=== PATIENT | female | born 1960 | race Caucasian/White ===

== ENCOUNTER 2020-07-30 03:08 | Emergency (ER) | payer OTHER ==
[2020-07-30] MEDS ORDERED: Phenazopyridine 95 MG Tab PO ONE (03:53)
--- NOTE | 2020-07-30 03:57 | EDM.PDOC ---
ED HPI GENERAL MEDICAL PROBLEM - General Chief Complaint: Genitourinary Problem Stated Complaint: BLADDER INFECTION Time Seen by Provider: 07/30/20 03:44 Source of Information: Reports: Patient, RN Notes Reviewed History Limitations: Reports: No Limitations - History of Present Illness INITIAL COMMENTS - FREE TEXT/NARRATIVE: 60-year-old gentleman presents emergency department with a complaint of dysuria, she states been going on for 24 hours she is having no other symptoms no fevers Suprapubic Pain Score (Numeric/FACES): 5 - Related Data Allergies Allergy/AdvReac Type Severity Reaction Status Date / Time Sulfa (Sulfonamide Allergy Swelling Verified 07/30/20 03:24 Antibiotics) Home Meds: Home Meds NK [No Known Home Meds] 07/30/20 [History] methocarbamoL [Methocarbamol] 500 mg PO ASDIRECTED PRN 07/30/20 [History] Past Medical History HEENT History: Reports: Impaired Vision Cardiovascular History: Reports: High Cholesterol, Other (See Below) Other Cardiovascular History: PFO - did not close as she grew Genitourinary History: Reports: UTI, Recurrent Musculoskeletal History: Reports: Back Pain, Chronic Oncologic (Cancer) History: Reports: Lung - Infectious Disease History Infectious Disease History: Reports: Chicken Pox, Herpes, Measles, Mumps, Rubella - Past Surgical History HEENT Surgical History: Reports: LASIK Oncologic Surgical History: Reports: Lobectomy, Other (See Below) Other Oncologic Surgeries/Procedures: right lower lobe Social & Family History - Tobacco Use Tobacco Use Status *Q: Never Tobacco User ED ROS GENERAL - Review of Systems Review Of Systems: See Below Constitutional: Denies: Fever, Chills : Reports: Dysuria ED EXAM, RENAL/ - Physical Exam Exam: See Below Exam Limited By: No Limitations General Appearance: Alert, WD/WN, No Apparent Distress Respiratory/Chest: No Respiratory Distress GI/Abdominal: Soft, Tender (Suprapubic discomfort) Course - Vital Signs Last Recorded V/S: Last Vital Signs Temp 97.3 F 07/30/20 03:36 Pulse 95 07/30/20 03:36 Resp 18 07/30/20 03:36 BP 109/69 07/30/20 03:36 Pulse Ox 98 07/30/20 03:36 - Orders/Labs/Meds Orders: Active Orders 24 hr Category Date Time Status CULTURE URINE [RM] Urgent Lab 07/30/20 03:45 Ordered Phenazopyridine [Urinary Pain Relief] Med 07/30/20 03:53 Once 190 mg PO ONETIME ONE Medication Orders Phenazopyridine HCl (Urinary Pain Relief) 190 mg PO ONETIME ONE Stop: 07/30/20 03:54 Labs: Laboratory Tests 07/30/20 Range/Units 03:18 Urine Color Yellow (YELLOW) Urine Appearance Cloudy A (CLEAR) Urine pH 5.5 (5.0-8.0) Ur Specific [place] >= 1.030 (1.008-1.030) Urine Protein 100 H (NEGATIVE) mg/dL Urine Glucose (UA) Negative (NEGATIVE) mg/dL Urine Ketones Negative (NEGATIVE) mg/dL Urine Occult Blood Large H (NEGATIVE) Urine Nitrite Positive H (NEGATIVE) Urine Bilirubin Negative (NEGATIVE) Urine Urobilinogen 0.2 (0.2-1.0) EU/dL Ur Leukocyte Esterase Small H (NEGATIVE) Urine RBC >100 H (0-5) Urine WBC 20-30 H (0-5) Ur Epithelial Cells Few Amorphous Sediment Not seen Urine Bacteria Many Urine Mucus Not seen Meds: Medications Generic Name Dose Route Start Last Admin Trade Name Freq PRN Reason Stop Dose Admin Phenazopyridine HCl 190 mg 07/30/20 03:53 Urinary Pain Relief PO 07/30/20 03:54 ONETIME ONE Departure - Departure Time of Disposition: 03:56 Disposition: Home, Self-Care 01 Condition: Good Clinical Impression: UTI, Urinary tract infectious disease - Discharge Information Instructions: Urinary Tract Infection, Adult, [id number] Referrals: PCP,None [Primary Care Provider] - Additional Instructions: Take full course of antibiotics, continue to use Pyridium for comfort, your culture results will be available in 3 to 4 days, please followup with your primary care provider in 3-5 days if not better, please call return to the emergency department with worsening of symptoms. Sepsis Event Note (ED) - Evaluation Sepsis Screening Result: No Definite Risk - Focused Exam Vital Signs: Vital Signs Temp Pulse Resp BP Pulse Ox 07/30/20 03:36 97.3 F 95 18 109/69 98 07/30/20 03:35 97.3 F 95 18 109/69 98 - My Orders Last 24 Hours: My Active Orders 07/30/20 03:45 CULTURE URINE [RM] Urgent 07/30/20 03:53 Phenazopyridine [Urinary Pain Relief] 190 mg PO ONETIME ONE - Assessment/Plan Last 24 Hours: My Active Orders 07/30/20 03:45 CULTURE URINE [RM] Urgent 07/30/20 03:53 Phenazopyridine [Urinary Pain Relief] 190 mg PO ONETIME ONE Plan: Assessment Acuity = acute Site and laterality = urinary tract infection Etiology = probable bacterial cause Manifestations = none Location of injury = Home Lab values = greater than 100 RBCs consistent with hematuria 20-30 WBCs consistent with pyuria cultures pending positive nitrates Plan Treat empirically Augmentin 875 p.o. twice daily x7 days in combination with Pyridium, follow-up primary care 3 to 5 days if not better culture results will be available in 3 to 4 days This note was dictated using [employer] voice recognition software please call with any questions on syntax or grammar.
== END 2020-07-30 04:05 | disposition home or self-care (01) ==
LOC: JP.ED 03:08
DX: N39.0 Urinary tract infection, site not specified (principal); Z88.2 Allergy status to sulfonamides
CPT/HCPCS: 81001; 87086; 87088; 87186; 99283; A9270

== ENCOUNTER 2020-08-05 20:11 | Emergency (ER) | payer MEDICAID, OTHER ==
--- NOTE | 2020-08-05 22:09 | EDM.PDOC ---
ED HPI GENERAL MEDICAL PROBLEM - General Chief Complaint: Genitourinary Problem Stated Complaint: UTI Time Seen by Provider: 08/05/20 20:29 Source of Information: Reports: Patient History Limitations: Reports: No Limitations - History of Present Illness INITIAL COMMENTS - FREE TEXT/NARRATIVE: chief complaint: bladder pain and pressure This is a 60 year old female presents to ER for evaluation of bladder pain and pressure. She reports it feels just her bladder infection never resolved and now feels like it is getting worse. denies fever, chills, nausea, vomiting, diarrhea. 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(s) - Related Data Allergies Allergy/AdvReac Type Severity Reaction Status Date / Time Sulfa (Sulfonamide Allergy Swelling Verified 08/05/20 21:25 Antibiotics) Home Meds: Home Meds methocarbamoL [Methocarbamol] 500 mg PO ASDIRECTED PRN 07/30/20 [History] Amoxicillin/Potassium Clav [Augmentin 875-125 Tablet] 1 tab PO BID 08/05/20 [History] Past Medical History HEENT History: Reports: Impaired Vision Cardiovascular History: Reports: High Cholesterol, Other (See Below) Other Cardiovascular History: PFO - did not close as she grew Genitourinary History: Reports: UTI, Recurrent Musculoskeletal History: Reports: Back Pain, Chronic Oncologic (Cancer) History: Reports: Lung - Infectious Disease History Infectious Disease History: Reports: Chicken Pox, Herpes, Measles, Mumps, Rubella - Past Surgical History HEENT Surgical History: Reports: LASIK Oncologic Surgical History: Reports: Lobectomy, Other (See Below) Other Oncologic Surgeries/Procedures: right lower lobe Social & Family History - Tobacco Use Tobacco Use Status *Q: Never Tobacco User - Recreational Drug Use Recreational Drug Use: No ED ROS GENERAL - Review of Systems Review Of Systems: See Below Constitutional: Reports: No Symptoms HEENT: Reports: No Symptoms Respiratory: Reports: No Symptoms Cardiovascular: Reports: No Symptoms Endocrine: Reports: No Symptoms GI/Abdominal: Reports: Abdominal Pain (low pelvic pain and pressure) : Reports: Dysuria, Frequency, Hematuria, Pain, Urgency Musculoskeletal: Reports: Back Pain (chronic) Skin: Reports: No Symptoms, Change in Color Psychiatric: Reports: No Symptoms Hematologic/Lymphatic: Reports: No Symptoms Immunologic: Reports: No Symptoms ED EXAM, GI/ABD - Physical Exam Exam: See Below Exam Limited By: No Limitations General Appearance: Alert, WD/WN, No Apparent Distress, Other (neat and well groomed, pleasant. appears younger than stated age.) Eyes: Bilateral: Normal Appearance Respiratory/Chest: No Respiratory Distress GI/Abdominal Exam: Normal Bowel Sounds, Soft, No Distention, Tender (pelvic/bladder) (Female) Exam: Deferred Rectal (Female) Exam: Deferred Back Exam: Normal Inspection, Full Range of Motion Extremities: Normal Inspection, Normal Range of Motion Neurological: Alert, Oriented, CN II-XII Intact, Normal Cognition, Normal Gait, Normal Reflexes, No Motor/Sensory Deficits Psychiatric: Normal Affect, Normal Mood Skin Exam: Warm, Dry, Intact, Normal Color, No Rash Lymphatic: No Adenopathy Course - Vital Signs Last Recorded V/S: Last Vital Signs Temp 35.9 C L 08/05/20 21:27 Pulse 70 08/05/20 21:27 Resp 16 08/05/20 21:27 BP 122/76 08/05/20 21:27 Pulse Ox 98 08/05/20 21:27 - Orders/Labs/Meds Labs: Laboratory Tests 08/05/20 Range/Units 20:32 Urine Color Yellow (YELLOW) Urine Appearance Clear (CLEAR) Urine pH 7.5 (5.0-8.0) Ur Specific [place] 1.020 (1.008-1.030) Urine Protein Negative (NEGATIVE) mg/dL Urine Glucose (UA) Negative (NEGATIVE) mg/dL Urine Ketones Negative (NEGATIVE) mg/dL Urine Occult Blood Trace-lysed H (NEGATIVE) Urine Nitrite Negative (NEGATIVE) Urine Bilirubin Negative (NEGATIVE) Urine Urobilinogen 0.2 (0.2-1.0) EU/dL Ur Leukocyte Esterase Negative (NEGATIVE) Urine RBC Not seen (0-5) Urine WBC Not seen (0-5) Ur Epithelial Cells Not seen Amorphous Sediment Few Urine Bacteria Not seen Meds: Medications Discontinued Medications Generic Name Dose Route Start Last Admin Trade Name Freq PRN Reason Stop Dose Admin Phenazopyridine HCl 190 mg 08/05/20 22:14 08/05/20 22:19 Urinary Pain Relief PO 08/05/20 22:15 190 mg ONETIME ONE Administration Departure - Departure Time of Disposition: 22:06 Disposition: Home, Self-Care 01 Condition: Good Clinical Impression: Cystitis - Discharge Information *PRESCRIPTION DRUG MONITORING PROGRAM REVIEWED*: Not Applicable *COPY OF PRESCRIPTION DRUG MONITORING REPORT IN PATIENT LORI: Not Applicable Instructions: Hemorrhagic Cystitis Referrals: Lorenzo Dowd MD [Primary Care Provider] - Forms: ED Department Discharge Care Plan Goals: cystitis -Macrobid 100mg one by mouth two times a day for 5 days -Difluconazole 150 mg po -take at onset of yeast symptoms. -push fluids 8 to 10 glasses of water -rest Return to ER for any nausea, vomiting, diarrhea, rash, fever of 101 or greater, chills or any concerns. Sepsis Event Note (ED) - Evaluation Sepsis Screening Result: No Definite Risk - Focused Exam Vital Signs: Vital Signs Temp Pulse Resp BP Pulse Ox 08/05/20 21:27 35.9 C L 70 16 122/76 98 - Problem List & Annotations (1) Cystitis SNOMED Code(s): 00308998 Code(s): N30.90 - CYSTITIS, UNSPECIFIED WITHOUT HEMATURIA Status: Acute Priority: High - Problem List Review Problem List Initiated/Reviewed/Updated: Yes - Assessment/Plan Plan: cystitis -Macrobid 100mg one by mouth two times a day for 5 days -Difluconazole 150 mg po -take at onset of yeast symptoms. -push fluids 8 to 10 glasses of water -rest Return to ER for any nausea, vomiting, diarrhea, rash, fever of 101 or greater, chills or any concerns.
[2020-08-05] MEDS ORDERED: Phenazopyridine 95 MG Tab PO ONE (22:14)
== END 2020-08-05 22:23 | disposition home or self-care (01) ==
LOC: JP.ED 20:11
DX: N30.90 Cystitis, unspecified without hematuria (principal); Z88.2 Allergy status to sulfonamides
CPT/HCPCS: 81001; 99283; A9270

== ENCOUNTER 2021-01-23 12:16 | Emergency (ER) | payer MEDICAID ==
--- NOTE | 2021-01-23 13:04 | EDM.PDOC ---
ED HPI GENERAL MEDICAL PROBLEM - General Chief Complaint: Allergic Reaction Stated Complaint: RASH ON BOTH ARMS HAD A CHANGE IN MEDS Time Seen by Provider: 01/23/21 12:55 Source of Information: Reports: Patient, RN Notes Reviewed History Limitations: Reports: No Limitations - History of Present Illness INITIAL COMMENTS - FREE TEXT/NARRATIVE: 60-year-old female presents emergency department today with rash encompasses predominantly her upper extremities she has not noticed any on her trunk although she is quite itchy on the trunk and extremities. Recently started new medication of Zetia she has since weaned herself off this medication half-life is about 22 hours - Related Data Allergies Allergy/AdvReac Type Severity Reaction Status Date / Time Sulfa (Sulfonamide Allergy Swelling Verified 01/23/21 12:39 Antibiotics) Home Meds: Home Meds methocarbamoL [Methocarbamol] 500 mg PO ASDIRECTED PRN 07/30/20 [History] Ezetimibe [Zetia] 10 mg PO DAILY 01/23/21 [History] Famciclovir 500 mg PO DAILY 01/23/21 [History] predniSONE [Prednisone] 20 mg PO DAILY #3 tablet 01/23/21 [Rx] Past Medical History HEENT History: Reports: Impaired Vision Cardiovascular History: Reports: High Cholesterol, Other (See Below) Other Cardiovascular History: PFO - did not close as she grew Respiratory History: Reports: Other (See Below) Other Respiratory History: lung cancer removed oct 2019 Genitourinary History: Reports: UTI, Recurrent Musculoskeletal History: Reports: Back Pain, Chronic Oncologic (Cancer) History: Reports: Lung - Infectious Disease History Infectious Disease History: Reports: Chicken Pox, Herpes, Measles, Mumps, Rubella - Past Surgical History HEENT Surgical History: Reports: LASIK GI Surgical History: Reports: Colonoscopy Oncologic Surgical History: Reports: Lobectomy, Other (See Below) Other Oncologic Surgeries/Procedures: right lower lobe Social & Family History - Tobacco Use Tobacco Use Status *Q: Former Tobacco User Used Tobacco, but Quit: Yes Month/Year Tobacco Last Used: 26 years - Caffeine Use Caffeine Use: Reports: Soda, Tea - Recreational Drug Use Recreational Drug Use: No ED ROS ALLERGIC REACTION - Review of Systems Review Of Systems: See Below Constitutional: Reports: No Symptoms Skin: Reports: Rash ED EXAM GENERAL NO PERIP PULSE - Physical Exam Exam: See Below Text/Narrative:: Examination of the integument system I do appreciate uticaric type rash on the upper extremities appreciate any rash on the trunk Exam Limited By: No Limitations General Appearance: Alert, WD/WN, No Apparent Distress Respiratory/Chest: No Respiratory Distress, Lungs Clear, Normal Breath Sounds, No Accessory Muscle Use, Chest Non-Tender Cardiovascular: Regular Rate, Rhythm, No Murmur Course - Vital Signs Last Recorded V/S: Last Vital Signs Temp 98.0 F 01/23/21 12:35 Pulse 66 01/23/21 12:35 Resp 16 01/23/21 12:35 BP 117/78 01/23/21 12:35 Pulse Ox 98 01/23/21 12:35 Departure - Departure Time of Disposition: 13:03 Disposition: Home, Self-Care 01 Condition: Fair Clinical Impression: Drug rash - Discharge Information Prescriptions: predniSONE [Prednisone] 20 mg PO DAILY #3 tablet Instructions: Allergies, Adult Referrals: Reanna Robles MD [Primary Care Provider] - Additional Instructions: Try the prednisone once a day for the next 3 days, stop Zetia, please followup with your primary care provider in 3-5 days if not better, please call return to the emergency department with worsening of symptoms. Sepsis Event Note (ED) - Evaluation Sepsis Screening Result: No Definite Risk - Focused Exam Vital Signs: Vital Signs Temp Pulse Resp BP Pulse Ox 01/23/21 12:35 98.0 F 66 16 117/78 98 - Assessment/Plan Plan: Assessment Acuity = acute Site and laterality = hives Etiology = possibly related to medications area Manifestations = none Location of injury = Home Lab values = none Plan Continue to use Benadryl as needed for symptomatic relief short course of prednisone 20 mg once a day for 3 days follow-up primary care 3 to 5 days if not better This note was dictated using [employer] recognition software please call with any questions on syntax or grammar.
== END 2021-01-23 13:09 | disposition home or self-care (01) ==
LOC: JP.ED 12:16
DX: L27.1 Localized skin eruption due to drugs and medicaments taken internally (principal); T46.6X5A Adverse effect of antihyperlipidemic and antiarteriosclerotic drugs, initial encounter; Z88.2 Allergy status to sulfonamides; Z87.891 Personal history of nicotine dependence
CPT/HCPCS: 99282

== ENCOUNTER 2021-01-28 03:18 | Emergency (ER) | payer MEDICAID ==
[2021-01-28] MEDS ORDERED: Ketorolac 30 MG/ML SDV IM ONE (03:34)
--- NOTE | 2021-01-28 03:57 | EDM.PDOC ---
ED HPI GENERAL MEDICAL PROBLEM - General Chief Complaint: Neck Problem Stated Complaint: REACTION TO MEDS Time Seen by Provider: 01/28/21 03:28 Source of Information: Reports: Patient, Old Records History Limitations: Reports: No Limitations - History of Present Illness INITIAL COMMENTS - FREE TEXT/NARRATIVE: Palak is a 60-year-old female presenting to the ED for evaluation of bilateral exterior neck pain. The patient was recently seen on 01/23/2021 for acute onset of urticaria in bilateral upper extremities that was attributed to recently being started on Zetia for her high cholesterol. She was placed on a 3-day course of prednisone 20 mg daily and had improvement in her rash, however, she completed this on Saturday and then developed the onset of the neck pain on Sat. She denies any trauma. She has not been doing any heavy lifting as she is recovering from a right lower lobectomy due to lung cancer in October 2019. She denies any new neurologic symptoms. She did take half of a tablet of methocarbamol 500 milligrams earlier tonight with some improvement in her pain, however, it is subsided. As a result, she has been unable to sleep due to the pain in the neck. 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: Other (see below) Other Treatments ADMINISTRATIVE MANAGER: robaxin Posterior Neck Pain Score (Numeric/FACES): 8 - Related Data Allergies Allergy/AdvReac Type Severity Reaction Status Date / Time ezetimibe [From Zetia] Allergy Rash Verified 01/28/21 03:27 Sulfa (Sulfonamide Allergy Swelling Verified 01/28/21 03:26 Antibiotics) Home Meds: Home Meds methocarbamoL [Methocarbamol] 500 mg PO ASDIRECTED PRN 07/30/20 [History] Famciclovir 500 mg PO DAILY 01/23/21 [History] Past Medical History HEENT History: Reports: Impaired Vision Cardiovascular History: Reports: High Cholesterol, Other (See Below) Other Cardiovascular History: PFO - did not close as she grew Respiratory History: Reports: Other (See Below) Other Respiratory History: lung cancer removed oct 2019 Gastrointestinal History: Reports: None Genitourinary History: Reports: UTI, Recurrent Musculoskeletal History: Reports: Back Pain, Chronic Neurological History: Reports: None Psychiatric History: Reports: None Endocrine/Metabolic History: Reports: None Hematologic History: Reports: None Immunologic History: Reports: None Oncologic (Cancer) History: Reports: Lung Dermatologic History: Reports: None - Infectious Disease History Infectious Disease History: Reports: Chicken Pox, Herpes, Measles, Mumps, Rubella - Past Surgical History HEENT Surgical History: Reports: LASIK Respiratory Surgical History: Reports: Lung Resection GI Surgical History: Reports: Colonoscopy Oncologic Surgical History: Reports: Lobectomy, Other (See Below) Other Oncologic Surgeries/Procedures: right lower lobe Social & Family History - Tobacco Use Tobacco Use Status *Q: Former Tobacco User Used Tobacco, but Quit: Yes Month/Year Tobacco Last Used: 1999 - Caffeine Use Caffeine Use: Reports: Soda, Tea - Recreational Drug Use Recreational Drug Use: No ED ROS GENERAL - Review of Systems Review Of Systems: See Below Constitutional: Reports: No Symptoms HEENT: Reports: No Symptoms Respiratory: Reports: No Symptoms Cardiovascular: Reports: No Symptoms Endocrine: Reports: No Symptoms GI/Abdominal: Reports: No Symptoms : Reports: No Symptoms Musculoskeletal: Reports: Neck Pain Skin: Reports: No Symptoms Neurological: Reports: No Symptoms Psychiatric: Reports: No Symptoms Hematologic/Lymphatic: Reports: No Symptoms Immunologic: Reports: No Symptoms ED EXAM, UPPER BACK/NECK PAIN - Physical Exam Exam: See Below Exam Limited By: No Limitations General Appearance: Alert, No Apparent Distress Eye Exam: Bilateral Eye: EOMI, PERRL Throat/Mouth Exam: Normal Inspection, Normal Lips, Normal Oropharynx, Normal Voice, No Airway Compromise Head Exam: Atraumatic, Normocephalic Neck Exam: Limited Range of Motion (Mild limitation to range of motion in all directions secondary to muscle spasm and tenderness.), Muscle Spasm (Bilateral trapezius muscle spasm), Paraspinous Muscle Tender (Bilateral paraspinal muscle spasm and tenderness extending into the bilateral trapezius muscles), Tender Lateral. No: Spinous Processes Tender, Tender Midline Nexus Criteria: No: Posterior, Midline Cervical Tenderness, Evidence of Intoxication, Altered Level of Consciousness, Focal Neurological Deficit, Painful Distraction Injuries Cardiovascular/Respiratory: Regular Rate, Rhythm, No M/R/G, Normal Peripheral Pulses, Normal Breath Sounds Extremities: Normal Inspection, Normal Range of Motion Neurologic: No Motor/Sensory Deficits, Alert, Normal Mood/Affect, Oriented x 3 Psychiatric: Normal Affect, Normal Mood Course - Vital Signs Last Recorded V/S: Last Vital Signs Temp 35.9 C L 01/28/21 03:23 Pulse 62 01/28/21 03:23 Resp 16 01/28/21 03:23 BP 133/66 01/28/21 03:23 Pulse Ox 97 01/28/21 03:23 - Orders/Labs/Meds Orders: Active Orders 24 hr Category Date Time Status CBC WITH AUTO DIFF [HEME] Stat Lab 01/28/21 03:40 Results SEDIMENTATION RATE MANUAL [HEME] Stat Lab 01/28/21 03:40 Results Labs: Laboratory Tests 01/28/21 01/28/21 Range/Units 03:40 03:40 WBC 4.2 L (4.5-11.0) K/uL RBC 4.59 (3.30-5.50) M/uL Hgb 13.7 (12.0-15.0) g/dL Hct 42.4 (36.0-48.0) % MCV 92 (80-98) fL MCH 30 (27-31) pg MCHC 32 (32-36) % Plt Count 188 (150-400) K/uL Neut % (Auto) 54 (36-66) % Lymph % (Auto) 35 (24-44) % [place] % (Auto) 9 H (2-6) % Eos % (Auto) 2 (2-4) % Baso % (Auto) 1 (0-1) % Sodium 146 (140-148) mmol/L Potassium 4.3 (3.6-5.2) mmol/L Chloride 104 (100-108) mmol/L Carbon Dioxide 29 (21-32) mmol/L Anion Gap 13.1 (5.0-14.0) mmol/L BUN 19 H (7-18) mg/dL Creatinine 0.8 (0.6-1.0) mg/dL Est Cr Clr Drug Dosing 57.67 mL/min Estimated GFR (MDRD) > 60 (>60) Glucose 100 (74-106) mg/dL Calcium 8.8 (8.5-10.1) mg/dL Total Bilirubin 0.2 (0.2-1.0) mg/dL AST 14 L (15-37) U/L ALT 24 (12-78) U/L Alkaline Phosphatase 77 (46-116) U/L C-Reactive Protein < 0.05 (0.0-0.3) mg/dL Total Protein 7.1 (6.4-8.2) g/dL Albumin 3.6 (3.4-5.0) g/dL Globulin 3.5 (2.3-3.5) g/dL Albumin/Globulin Ratio 1.0 L (1.2-2.2) Meds: Medications Discontinued Medications Generic Name Dose Route Start Last Admin Trade Name Moshe PRN Reason Stop Dose Admin Ketorolac Tromethamine 30 mg 01/28/21 03:34 01/28/21 03:48 Ketorolac 30 Mg/Ml Sdv IM 01/28/21 03:35 30 mg ONETIME ONE Administration - Re-Assessments/Exams Free Text/Narrative Re-Assessment/Exam: 01/28/21 04:16 based on my exam the patient has bilateral trapezius muscle spasm causing torticollis. She had taken a half dose of her methocarbamol with some improvement, however, it probably was not sufficient to get this under control. I am recommending that she take a full dose of the methocarbamol every 6 hours. We will also put her on oral Toradol for the next 5 days. Labs look good without any suggestion of hypokalemia. She was not on prednisone for a sufficient time to cause any adrenal suppression as was mentioned by the triage nurse to the patient. I do anticipate she will have full recovery of this in the next 3 to 5 days. Indications return to the ED were discussed. Departure - Departure Time of Disposition: 04:18 Disposition: Home, Self-Care 01 Clinical Impression: Acute torticollis, Trapezius muscle spasm - Discharge Information Instructions: Acute Torticollis, Adult Referrals: Reanna Robles MD [Primary Care Provider] - Forms: ED Department Discharge Care Plan Goals: Your work-up today has shown normal labs. My exam demonstrates that you have spasm in bilateral trapezius muscles causing the stiffness in your neck. I am recommending you take your methocarbamol 500 mg 4 times a day for the next 2 to 3 days to reduce the spasm in your neck. In addition I have put you on an oral form of what you received in the shot to help control the pain. You may benefit from icing the neck which will reduce spasm as well. Anticipate she will have full recovery of this in the next 3 to 5 days with incremental improvement each day. Sepsis Event Note (ED) - Evaluation Sepsis Screening Result: No Definite Risk - Focused Exam Vital Signs: Vital Signs Temp Pulse Resp BP Pulse Ox 05/01/21 03:23 35.9 C L 62 16 133/66 97 - Problem List & Annotations (1) Acute torticollis SNOMED Code(s): 01574745, 58940211 Code(s): M43.6 - TORTICOLLIS Status: Acute Priority: Medium Current Visit: Yes (2) Trapezius muscle spasm SNOMED Code(s): 837363664560 Code(s): M62.838 - OTHER MUSCLE SPASM Status: Acute Priority: Medium Current Visit: Yes - Problem List Review Problem List Initiated/Reviewed/Updated: Yes - My Orders Last 24 Hours: My Active Orders 01/28/21 03:40 CBC WITH AUTO DIFF [HEME] Stat SEDIMENTATION RATE MANUAL [HEME] Stat - Assessment/Plan Last 24 Hours: My Active Orders 01/28/21 03:40 CBC WITH AUTO DIFF [HEME] Stat SEDIMENTATION RATE MANUAL [HEME] Stat
== END 2021-01-28 04:28 | disposition home or self-care (01) ==
LOC: JP.ED 03:18
DX: M43.6 Torticollis (principal); M62.838 Other muscle spasm; Z88.2 Allergy status to sulfonamides; Z88.8 Allergy status to other drugs, medicaments and biological substances
CPT/HCPCS: 36415; 80053; 85025; 85651; 86140; 96372; 99283; J1885

== ENCOUNTER 2021-04-18 04:03 | Emergency (ER) | payer MEDICAID ==
--- NOTE | 2021-04-18 04:45 | EDM.PDOC ---
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 But she is having difficulty sleeping at night because she is uncomfortable. No loss of bowel or bladder Left Lower Back Pain Score (Numeric/FACES): 6 - Related Data Allergies Allergy/AdvReac Type Severity Reaction Status Date / Time ezetimibe [From Zetia] Allergy Rash Verified 04/18/21 04:28 Sulfa (Sulfonamide Allergy Swelling Verified 04/18/21 04:28 Antibiotics) Home Meds: Home Meds Famciclovir 500 mg PO DAILY 01/23/21 [History] methocarbamoL [Methocarbamol] 500 mg PO QID PRN #40 tablet 01/28/21 [Rx] Past Medical History HEENT History: Reports: Impaired Vision Cardiovascular History: Reports: High Cholesterol, Other (See Below) Other Cardiovascular History: PFO - did not close as she grew Respiratory History: Reports: Other (See Below) Other Respiratory History: lung cancer removed oct 2019 Gastrointestinal History: Reports: None Genitourinary History: Reports: UTI, Recurrent Musculoskeletal History: Reports: Back Pain, Chronic Neurological History: Reports: None Psychiatric History: Reports: None Endocrine/Metabolic History: Reports: None Hematologic History: Reports: None Immunologic History: Reports: None Oncologic (Cancer) History: Reports: Lung Dermatologic History: Reports: None - Infectious Disease History Infectious Disease History: Reports: Chicken Pox, Herpes, Measles, Mumps, Rubella - Past Surgical History HEENT Surgical History: Reports: LASIK Respiratory Surgical History: Reports: Lung Resection GI Surgical History: Reports: Colonoscopy Oncologic Surgical History: Reports: Lobectomy, Other (See Below) Other Oncologic Surgeries/Procedures: right lower lobe Social & Family History - Tobacco Use Tobacco Use Status *Q: Never Tobacco User - Caffeine Use Caffeine Use: Reports: None - Recreational Drug Use Recreational Drug Use: No ED ROS GENERAL - Review of Systems Review Of Systems: See Below GI/Abdominal: Reports: No Symptoms Musculoskeletal: Reports: Neck Pain Neurological: Reports: No Symptoms ED EXAM,LOWER BACK PAIN/INJURY - Physical Exam Exam: See Below Exam Limited By: No Limitations General Appearance: Alert, WD/WN, No Apparent Distress Respiratory/Chest: No Respiratory Distress Back Exam: Normal Inspection, Decreased Range of Motion, Paraspinal Tenderness. No: CVA Tenderness (R), CVA Tenderness (L), Vertebral Tenderness Course - Vital Signs Last Recorded V/S: Last Vital Signs Temp 98.2 F 04/18/21 04:31 Pulse 74 04/18/21 04:31 Resp 16 04/18/21 04:31 BP 139/86 04/18/21 04:31 Pulse Ox 98 04/18/21 04:31 Departure - Departure Time of Disposition: 04:43 Disposition: Home, Self-Care 01 Condition: Fair Clinical Impression: Back pain Qualifiers: Back pain location: low back pain Chronicity: acute Back pain laterality: left Sciatica presence: with sciatica Sciatica laterality: sciatica of left side Qualified Code(s): M54.42 - Lumbago with sciatica, left side - Discharge Information Instructions: Acute Back Pain, Adult Referrals: PCP,None [Primary Care Provider] - Additional Instructions: , Use your Toradol for baseline pain control use the hydrocodone for breakthrough pain, take prednisone 1 tablet once a day for the next 5 days, please followup with your primary care provider in 5-7 days if not better, please call return to the emergency department with worsening of symptoms. Sepsis Event Note (ED) - Evaluation Sepsis Screening Result: No Definite Risk - Focused Exam Vital Signs: Vital Signs Temp Pulse Resp BP Pulse Ox 04/18/21 04:31 98.2 F 74 16 139/86 98 - Assessment/Plan Plan: Assessment Acuity = acute Site and laterality = low back pain secondary to injury Etiology = lifting injury Manifestations = none Location of injury = Home Lab values = none Plan Prescription written for prednisone 20 mg once a day for 5 days as well as hydrocodone 5/325 1 tab p.o. 3 times daily as needed total #6 follow-up primary care in 5 to 7 days if no improvement This note was dictated using [employer] voice recognition software please call with any questions on syntax or grammar.
== END 2021-04-18 04:53 | disposition home or self-care (01) ==
LOC: JP.ED 04:03
DX: M54.42 Lumbago with sciatica, left side (principal); Z88.2 Allergy status to sulfonamides; Z88.8 Allergy status to other drugs, medicaments and biological substances
CPT/HCPCS: 99283